=== PATIENT | female | born 1985 | race Caucasian/White ===

== ENCOUNTER 2019-07-02 10:03 | Day surgery (SDC) | payer BC ==
[~2019-07-02 10:03] MED LIST: Buffered Lidocaine 1% SYRIN* 1 ML/SYRINGE INTRADERM ONE; Dexamethasone IV* 4 MG/ML 1 ML (4 MG) IV SLOW PU ONE; Dexamethasone IV* 4 MG/ML 1 ML (4 MG) ONE; Famotidine IV* 10 MG/ML 2 ML (20 mg) IV ONE; Famotidine IV* 10 MG/ML 2 ML (20 mg) ONE; Lactated Ringers 1000 ML Bag* 1,000 ML IV SCH
[2019-07-02] MEDS ORDERED: Lidocaine 1% INJ* 10 MG/ML 30 ML SDV ONE (11:57)
[2019-07-02] MEDS ORDERED: Bupivacaine 0.5% SDV PF* 30ML VIAL ONE (12:01)
[2019-07-02] MEDS ORDERED: Ondansetron INJ* 2 MG/ML VIAL ONE (12:11)
[2019-07-02] MEDS ORDERED: Ketorolac INJ* 30 MG/ML 1 ML VIAL ONE (12:11)
[2019-07-02] MEDS ORDERED: Lidocaine 2% PF * 5 ML VIAL ONE (12:11)
[2019-07-02] MEDS ORDERED: Propofol* 10 MG/ML 20 ML BTL ONE (12:11)
[2019-07-02] MEDS ORDERED: Midazolam* 1 MG/ML 2 ML VIAL (2 MG) ONE (12:16)
[2019-07-02] MEDS ORDERED: fentaNYL* 50 MCG/ML 5 ML VIAL (250 MCG VIAL) ONE (12:16)
[2019-07-02] MEDS ORDERED: DiMENhydriNATE IV* 50 MG/ML VIAL IV PUSH PRN (13:20)
[2019-07-02] MEDS ORDERED: Ondansetron INJ* 2 MG/ML VIAL IV PRN (13:20)
[2019-07-02] MEDS ORDERED: oxyCODONE/Acetamin 5/325 MG* TAB PO PRN (13:20)
[2019-07-02] MEDS ORDERED: Scopolamine 1.5 mg* PATCH TRANSDERM PRN (13:20)
[2019-07-02] MEDS ORDERED: HYDROmorphone INJ1* 1 MG/ML SYRINGE IV PRN (13:20)
[2019-07-02] MEDS ORDERED: Naloxone* 0.4 MG/ML 1 ML VIAL IV PRN (13:20)
[2019-07-02] MEDS ORDERED: fentaNYL* 50 MCG/ML 2 ML VIAL (100 MCG VIAL) IV PRN (13:20)
[2019-07-02] MEDS ORDERED: HYDROcodone/ACETAMIN 5-325 MG* 1 TAB ONE (14:30)
[2019-07-02 15:24] VITALS: BP 108/69
--- NOTE | 2019-07-02 23:28 | OP ---
DATE OF OPERATION: 07/02/19 [facility] DATE OF : 81 SURGEON: Gayathri Tang MD FIG BAR MACHINE OPERATOR: JOSE ANGEL Carter ANESTHESIA: General. 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 OPERATIVE PROCEDURE: Right wrist arthroscopy, synovectomy, and ulnar shortening osteotomy. ESTIMATED BLOOD LOSS: Zero. TOURNIQUET TIME: About an hour. INDICATIONS FOR PROCEDURE: Audelia is a 33-year-old female who has, on x-ray, a significant ulnar positive variance and after suffering a fall has had persistent wrist pain on the ulnar aspect of her right wrist. She presents for wrist arthroscopy and ulnar shortening osteotomy. DESCRIPTION OF PROCEDURE: The patient was brought to the operating room, was given a general anesthetic and placed in the supine position on the operating table with a tourniquet around her right upper arm. The skin of her right upper extremity was prepped and draped in the usual sterile fashion. The upper extremity was exsanguinated and the tourniquet elevated to 250 mmHg. The radiocarpal joint was filled with 10 cc of Marcaine 0.5% plain. A stab incision was made just distal to Armond's tubercle and we entered the midcarpal joint with the arthroscope. There was no arthritis in the midcarpal joint. No evidence of a scapholunate or lunotriquetral ligament tear. The arthroscope was then placed in the radiocarpal joint and the articular surface of the radius , scapholunate, and triquetrum was in good condition. The scapholunate and lunotriquetral ligaments were intact. There was no tear of the TFCC. The arthroscopy instruments were removed and the incisions including a second stab incision that had been made in the 4-5 interval were closed with 4-0 nylon suture. Next, a longitudinal incision was made along the subcutaneous border of the ulna and we dissected down to the interval between the flexor and extensor muscles. The fascia was incised longitudinally exposing the midshaft of the ulna. A plate from the [employer] ulnar shortening set was secured with 1 distal screw in the slotted hole and 3 proximal screws. The drill guide was then secured with 2 K-wires and the A cutting guide for 5 mm shortening was placed in the proper position and held with the plate clamp. The proper saw blade was then used to make the first saw cut and then a second saw cut was made with the B cutting guide. The wafer of bone was removed. Next, the compression tool was secured with a K-wire through the distal fragment and the screw in the slotted hole was loosened to quarter turn and that allowed us to compress the 2 osteotomy fragments together. They were held continuously with the plate clamp while a hole for the lag screw was drilled across the 2 fragments. A 16 mm lag screw was placed and then the distal screw in the slotted hole was re-secured. The final 2 screws were placed in the distal portion of the plate and the position of the hardware, fracture fragments, and wrist joint which was now leveled were recorded on the C- arm. The wound was copiously irrigated with saline. The fascia was closed between the flexor and extensor compartments with 2-0 Vicryl suture. The subcutaneous tissue was closed with 3-0 Vicryl and the skin with skin hayley. The wounds were all dressed with Xeroform, 4x4, Webril, and a volar splint. The patient tolerated the procedure well and was brought to the recovery room in good condition. [id number]/[facility] #: [id number] ANDRES
== END 2019-07-04 15:22 | disposition home or self-care (01) ==
LOC: OREAST 10:03
PROVIDERS: ATTEND Orthopaedic Surgery
DX: M24.831 Other specific joint derangements of right wrist, not elsewhere classified (principal); F41.8 Other specified anxiety disorders; G40.89 Other seizures
CPT/HCPCS: 76000; 81025; C1713; C1776; J1100; J1885; J2250; J2405; J2704; J3010; J3490